=== PATIENT | female | born 1975 | race African-American/Black ===

== ENCOUNTER 2024-08-23 09:36 | Day surgery (SDC) | payer BC ==
[2024-08-19 15:28] VITALS: BMI 32.2
[2024-08-23 10:01] VITALS: RESP 18
[2024-08-23] MEDS ORDERED: PROPOFOL 160 ML ONE (10:48)
[2024-08-23 11:54] VITALS: BP 95/58; PULSE 77; TEMP 97.5
== END 2024-08-23 12:00 | disposition home or self-care (01) ==
LOC: FASU-ENDO 09:36
PROVIDERS: ATTEND Internal Medicine Gastroenterology
PROC: 0DJD8ZZ Inspection of Lower Intestinal Tract, Via Natural or Artificial Opening Endoscopic (ICD-10-PCS; principal; 2024-08-23 11:08)
DX: Z12.11 Encounter for screening for malignant neoplasm of colon (principal)